=== PATIENT | male | born 1985 | race Caucasian/White ===

== ENCOUNTER 2024-10-30 11:55 | Emergency (ER) | payer SELFPAY ==
[2024-10-30 11:58] VITALS: BP 145/100; PULSE 107; TEMP 36.3; O2SAT 100; BMI 24.2
[2024-10-30 12:18] LABS: Glucometer 266 mg/dL (74-106)
--- NOTE | 2024-10-30 12:20 | XR_ITS ---
The [address] [address] Patient Name: SCOUT PEREZ MRN: [id number] date: 1985 Sex: M Assigned Patient Location: ER Current Patient Location: ER Accession/Order Number: [id number] Exam Date: 10/30/2024 12:25 Report Date: 10/30/2024 12:55 At the request of: ALISIA GHOSH Procedure: XR foot LT min 3V PROCEDURE: XR foot LT min 3V HISTORY: ulcer in the big toe COMPARISON: None. FINDINGS: BONES:No fracture, acute abnormality, or significant arthropathy. SOFT TISSUES:Skin surface defect along the plantar surface of first toe consistent with ulceration. No visible extension to the bone. EFFUSION:None visible. OTHER: Negative. XR/XR foot LT min 3V IMPRESSION: 1. Plantar surface ulceration of first toe. 2. No appreciable bone involvement to suggest osteomyelitis. Electronically authenticated by: FRANCK DUONG Date: 10/30/2024 12:55
[2024-10-30 12:36] LABS: Basophils Percent Auto 0.6 % (0.2-2.0); Eosinophils Absolute Auto 0.1 10^3/uL (0.0-0.7); Eosinophils Percent Auto 0.9 % (0.9-7.0); Hematocrit 44.2 % (42.0-54.0); Hemoglobin 15.6 g/dL (14.0-18.0); Immature Granulocytes Abs Auto 0.04 10^3/uL (0.00-0.03); Immature Granulocytes Pct Auto 0.6 % (0.0-0.5); Lymphocytes Absolute Auto 1.5 10^3/uL (1.2-3.8); Lymphocytes Percent Auto 23.2 % (20.5-60.0); Mean Corpuscular HGB Conc 35.3 g/dL (29.9-35.2); Mean Corpuscular Hemoglobin 31.5 pg (25.9-34.0); Mean Corpuscular Volume 89.1 fL (80.0-94.0); Mean Platelet Volume 8.5 fL (9.5-13.5); Monocytes Absolute Auto 0.5 10^3/uL (0.3-0.8); Monocytes Percent Auto 7.3 % (1.7-12.0); Neutrophils Absolute Auto 4.4 10^3/uL (1.4-6.5); Neutrophils Percent Auto 67.4 % (43.0-75.0); Platelet Count 188 10^3/uL (150-450); Red Blood Count 4.96 10^6/uL (4.70-6.10); Red Cell Distribution Width 15.6 % (11.0-15.0); White Blood Count 6.5 10^3/uL (4.0-11.0)
[2024-10-30 12:42] LABS: Erythrocyte Sedimentation Rate 15 mm/hr (<=15)
[2024-10-30 12:50] LABS: Alanine Aminotransferase 22 U/L (16-63); Alkaline Phosphatase 104 U/L (46-116); Anion Gap 10.6; Aspartate Amino Transferase 13 U/L (15-37); BUN Creatinine Ratio 16.9; Bilirubin Total 4.5 mg/dL (0.2-1.0); Carbon Dioxide 30.1 mmol/L (21.0-32.0); Chloride 99 mmol/L (98-107); Estimated Average Glucose 157 mg/dL; Estimated GFR (African America >60 (>=60 mL/min/1.73m^2); Estimated GFR (Non-African Ame >60 (>=60 mL/min/1.73m^2); Globulin 4.2 g/dL; Glucose 283 mg/dL (74-106); Glycohemoglobin A1C 7.1 % (4.5-6.2); Potassium 3.7 mmol/L (3.5-5.1); Sodium 136 mmol/L (136-145); Total Protein 8.2 g/dL (6.4-8.2)
[2024-10-30 12:51] LABS: C Reactive Protein <0.50 mg/dL (<=0.50)
--- NOTE | 2024-10-30 13:18 | ED.EXTPRO1 ---
HPI - Extremity Problem General Chief complaint: Extremity Problem, Nontraumatic Stated complaint: LOWER EXTREMITY Time Seen by Provider: 10/30/24 12:08 Source: patient Mode of arrival: walk-in Limitations: no limitations History of Present Illness HPI Narrative: The patient presented to us with a ulcer to his left foot he mentioned that it developed over the last 2 weeks, patient does not have any primary care doctor and he mentioned that he had no recent blood workup or any health care evaluation He is complaining to us with a pain in his left foot in addition to the ulcer The patient noted that almost 2 weeks ago with no trauma or fall but he mentioned that he does not feel his feet as a baseline No fever or chills Related Data Previous Rx's ?Medication ?Instructions ?Recorded doxycycline hyclate 100 mg tablet 100 mg PO BID 7 days #14 tabs 10/30/24 metformin 500 mg tablet 500 mg PO DAILY #20 tabs 10/30/24 Allergies Allergy/AdvReac Type Severity Reaction Status Date / Time No Known Drug Allergies Allergy Verified 10/30/24 12:04 Review of Systems ROS Status of ROS 10 or more systems reviewed and unremarkable except as noted in history and below PFSH PFSH Social History Little interest or pleasure in doing things: not at all Feeling down, depressed, or hopeless: not at all Exam Narrative Exam Narrative: Nurses notes and vital signs reviewed and patient is not hypoxic. General: Well-appearing and in no apparent distress. Skin: Warm, dry, no pallor noted. No rash. Head: Normocephalic, atraumatic. Neck: Supple, non-tender. Eye: Pupils are equal, round and EOMI. No scleral icterus. Ears, Nose, Mouth, and Throat: TM are clear, no nasal mucosal hypertrophy. Oral mucosa is moist, no posterior oropharynx erythema, uvula is mid-line Cardiovascular: Regular Rate and Rhythm without murmur, gallop or rub. Respiratory: No accessory muscle use or respiratory distress. Lungs are clear to auscultation, no wheezing, rales or rhonchi Chest Wall: no tenderness Back: No midline thoracic or lumbar vertebral tenderness. No CVA tenderness Musculoskeletal: The patient left foot examination showed that he have wet feet mostly at the sole, in addition to an ulcer that is measuring almost half a centimeter in diameter that is healing although there is redness on the dorsum of the foot just on the big toe, the ulcer is just at the distal phalanx of the greater toe on the left side and there is no tenderness on palpation GI: Abdomen is soft, non-distended. Normal bowel sounds. No masses appreciated. No tenderness to palpation. No rebound, guarding, or rigidity noted. Neurological: A&O x4. No cranial nerve dysfunction observed. No truncal ataxia. Moves all extremities. Sensation intact. Psychiatric: Cooperative and interactive. Normal mood and affect. Constitutional Vital Signs, click to edit/add: Last Vital Signs Temp 97.4 F L 10/30/24 11:58 Pulse 107 H 10/30/24 11:58 Resp 18 10/30/24 11:58 BP 145/100 H 10/30/24 11:58 Pulse Ox 100 10/30/24 11:58 O2 Del Method Room Air 10/30/24 11:58 Course Vital Signs Vital signs: Vital Signs Temperature 97.4 F L 10/30/24 11:58 Pulse Rate 107 H 10/30/24 11:58 Respiratory Rate 18 10/30/24 11:58 Blood Pressure 145/100 H 10/30/24 11:58 Pulse Oximetry 100 10/30/24 11:58 Oxygen Delivery Method Room Air 10/30/24 11:58 Temperature 97.4 F L 10/30/24 11:58 Pulse Rate 107 H 10/30/24 11:58 Respiratory Rate 18 10/30/24 11:58 Blood Pressure 145/100 H 10/30/24 11:58 Pulse Oximetry 100 10/30/24 11:58 Oxygen Delivery Method Room Air 10/30/24 11:58 MDM - Extremity (Nontraumatic) MDM Narrative Medical decision making narrative: Patient had a CBC and chemistry in the ER done after he had a elevated blood sugar and his A1c was 7.1 He is mostly is diabetic and started on metformin 5 mg daily in addition to doxycycline for possible mild cellulitis developing in the left foot The patient referred to podiatry as outpatient in addition to assigned a primary care He was instructed about the importance of follow-up with the podiatry in addition to starting to follow-up with the primary care in addition to diabetic education provided on discharge papers The patient is to follow up with primary care physician in next 2-3 days or to return to the emergency department should any of the signs or symptoms worsen or new symptoms develop. The patient agrees with the following Diagnosis and Treatment plan and the patient will be discharged home. Lab Data Labs: Lab Results 10/30/24 10/30/24 Range/Units 12:17 12:30 WBC 6.5 (4.0-11.0) 10^3/uL RBC 4.96 (4.70-6.10) 10^6/uL Hgb 15.6 (14.0-18.0) g/dL Hct 44.2 (42.0-54.0) % MCV 89.1 (80.0-94.0) fL MCH 31.5 (25.9-34.0) pg MCHC 35.3 H (29.9-35.2) g/dL RDW 15.6 H (11.0-15.0) % Plt Count 188 (150-450) 10^3/uL MPV 8.5 L (9.5-13.5) fL Neut % (Auto) 67.4 (43.0-75.0) % Lymph % (Auto) 23.2 (20.5-60.0) % [place] % (Auto) 7.3 (1.7-12.0) % Eos % (Auto) 0.9 (0.9-7.0) % Baso % (Auto) 0.6 (0.2-2.0) % Neut # (Auto) 4.4 (1.4-6.5) 10^3/uL Lymph # (Auto) 1.5 (1.2-3.8) 10^3/uL [place] # (Auto) 0.5 (0.3-0.8) 10^3/uL Eos # (Auto) 0.1 (0.0-0.7) 10^3/uL Baso # (Auto) 0.0 (0.0-0.1) 10^3/uL Abs Immat Gran (auto) 0.04 H (0.00-0.03) 10^3/uL Imm/Tot Granulo (auto) 0.6 H (0.0-0.5) % ESR 15 (<=15) mm/hr Sodium 136 (136-145) mmol/L Potassium 3.7 (3.5-5.1) mmol/L Chloride 99 (98-107) mmol/L Carbon Dioxide 30.1 (21.0-32.0) mmol/L Anion Gap 10.6 BUN 14.0 (7.0-18.0) mg/dL Creatinine 0.83 (0.70-1.30) mg/dL Est GFR ( Amer) >60 (>=60 mL/min/1.73m^2) Est GFR (Non-Af Amer) >60 (>=60 mL/min/1.73m^2) BUN/Creatinine Ratio 16.9 Glucose 283 H (74-106) mg/dL Estimat Average Glucose 157 mg/dL Hemoglobin A1c 7.1 H (4.5-6.2) % Calcium 9.0 (8.5-10.1) mg/dL Total Bilirubin 4.5 H (0.2-1.0) mg/dL AST 13 L (15-37) U/L ALT 22 (16-63) U/L Alkaline Phosphatase 104 (46-116) U/L C-Reactive Protein <0.50 (<=0.50) mg/dL Total Protein 8.2 (6.4-8.2) g/dL Albumin 4.0 (3.4-5.0) g/dL Globulin 4.2 g/dL Albumin/Globulin Ratio 1.0 POC Glucose 266 H (74-106) mg/dL Discharge Plan Discharge Chief Complaint: Extremity Problem, Nontraumatic Clinical Impression: Diabetic foot ulcer, Newly diagnosed diabetes Patient Disposition: Home, Self-Care Time of Disposition Decision: 13:07 Condition: Good Prescriptions / Home Meds: New metformin 500 mg tablet 500 mg PO DAILY Qty: 20 0RF doxycycline hyclate 100 mg tablet 100 mg PO BID 7 Days Qty: 14 0RF Print Language: Georgian Instructions: Foot Care for People with Diabetes (ED), Diabetes and Your Skin (ED), Diabetes and Nutrition (ED), Diabetes and Exercise (ED) Referrals: Physician,Non-Staff, MD [Primary Care Provider] - 1 week Mic Mccann DPM [Physician] - 1 week
== END 2024-10-30 13:19 | disposition home or self-care (01) ==
PROVIDERS: Emergency Provider Emergency Medicine
DX: E11.621 Type 2 diabetes mellitus with foot ulcer (principal); L97.529 Non-pressure chronic ulcer of other part of left foot with unspecified severity; Z79.84 Long term (current) use of oral hypoglycemic drugs
CPT/HCPCS: 36415; 73630; 80053; 83036; 85025; 85652; 86140; 99284

== ENCOUNTER 2024-12-22 19:59 | Emergency (ER) | payer SELFPAY ==
[2024-12-22 20:03] VITALS: BP 166/105; PULSE 100; O2SAT 100; BMI 25.8
[2024-12-22 20:09] VITALS: TEMP 36.4
--- NOTE | 2024-12-22 20:09 | ED.GENADUL1 ---
HPI HPI - General Adult General Chief complaint: Alcohol Stated complaint: intoxication Time Seen by Provider: 12/22/24 20:05 Source: patient and law enforcement Mode of arrival: law enforcement Limitations: no limitations History of Present Illness HPI narrative: 39-year-old male presents to the emergency department for alcohol intoxication and falling. He was brought in by paramedics and police. He was apparently walking down the street, not driving, and he fell a few times. The patient himself does not have any complaints. He seems to be well-known to the police officers who report that he drinks frequently and sometimes gets emotional when he drinks. They report that he typically does not get violent. This occurred just before coming into the emergency department. Related Data Previous Rx's ?Medication ?Instructions ?Recorded doxycycline hyclate 100 mg tablet 100 mg PO BID 7 days #14 tabs 10/30/24 metformin 500 mg tablet 500 mg PO DAILY #20 tabs 10/30/24 Allergies Allergy/AdvReac Type Severity Reaction Status Date / Time No Known Drug Allergies Allergy Verified 10/30/24 12:04 Opioid HPI Opioid Management Most Recent Opioid Data: No Data to Display Review of Systems ROS Narrative Not obtainable, alcohol intoxication PFSH PFSH Social History Little interest or pleasure in doing things: not at all Feeling down, depressed, or hopeless: not at all Exam Narrative Exam Narrative: Nurses note and vital signs reviewed and patient is not hypoxic. General: The patient appears in no acute distress Skin: Warm, dry, no pallor noted. There is no rash noted. His skin feels cool Head: Normocephalic, atraumatic Eye: Normal conjunctiva, no drainage Ears, Nose, Mouth, and Throat: oral mucosa is moist. Nares patent. Cardiovascular: Regular Rate and Rhythm, borderline tachycardia Respiratory: Patient is in no distress, no accessory muscle use, lungs are clear to auscultation, no wheezing, rales or rhonchi Back: non-tender GI: Soft and nontender Musculoskeletal: The patient has no evidence of calf tenderness, no pitting edema, symmetrical pulses noted bilaterally Neurological: A&O x4, moves all of his extremities well Psychiatric: Cooperative Constitutional Vital Signs, click to edit/add: Last Vital Signs Temp 97.6 F 12/22/24 20:09 Pulse 95 H 12/22/24 22:13 Resp 18 12/22/24 22:13 BP 136/88 12/22/24 22:13 Pulse Ox 99 12/22/24 22:13 O2 Del Method Room Air 12/22/24 20:03 Course Vital Signs Vital signs: Vital Signs Pulse Rate 100 H 12/22/24 20:03 Respiratory Rate 20 12/22/24 20:03 Blood Pressure 166/105 H 12/22/24 20:03 Pulse Oximetry 100 12/22/24 20:03 Oxygen Delivery Method Room Air 12/22/24 20:03 Temperature 97.6 F 12/22/24 20:09 Pulse Rate 95 H 12/22/24 22:13 Respiratory Rate 18 12/22/24 22:13 Blood Pressure 136/88 12/22/24 22:13 Pulse Oximetry 99 12/22/24 22:13 Oxygen Delivery Method Room Air 12/22/24 20:03 Medical Decision Making MDM Narrative Medical decision making narrative: The patient was found to have alcohol intoxication with a level of 320. There is no injury. He was somewhat uncooperative at various points in the emergency department and he was given 1 mg of IV Ativan. He slept quite well and subsequently was able to wake up and ambulate without any significant difficulty and the police are going to take him to his house. Differential Diagnosis Differential Diagnosis: Alcohol intoxication Lab Data Lab results reviewed: Yes I reviewed the patient's lab results Labs: Lab Results 12/22/24 Range/Units 20:20 WBC 6.4 (4.0-11.0) 10^3/uL RBC 4.34 L (4.70-6.10) 10^6/uL Hgb 14.8 (14.0-18.0) g/dL Hct 40.9 L (42.0-54.0) % MCV 94.2 H (80.0-94.0) fL MCH 34.1 H (25.9-34.0) pg MCHC 36.2 H (29.9-35.2) g/dL RDW 16.5 H (11.0-15.0) % Plt Count 150 (150-450) 10^3/uL MPV 10.1 (9.5-13.5) fL Neut % (Auto) 67.5 (43.0-75.0) % Lymph % (Auto) 22.0 (20.5-60.0) % [place] % (Auto) 8.2 (1.7-12.0) % Eos % (Auto) 0.3 L (0.9-7.0) % Baso % (Auto) 0.8 (0.2-2.0) % Neut # (Auto) 4.3 (1.4-6.5) 10^3/uL Lymph # (Auto) 1.4 (1.2-3.8) 10^3/uL [place] # (Auto) 0.5 (0.3-0.8) 10^3/uL Eos # (Auto) 0.0 (0.0-0.7) 10^3/uL Baso # (Auto) 0.1 (0.0-0.1) 10^3/uL Abs Immat Gran (auto) 0.08 H (0.00-0.03) 10^3/uL Imm/Tot Granulo (auto) 1.2 H (0.0-0.5) % Sodium 139 (136-145) mmol/L Potassium 4.3 (3.5-5.1) mmol/L Chloride 103 (98-107) mmol/L Carbon Dioxide 28.7 (21.0-32.0) mmol/L Anion Gap 11.6 BUN 10.0 (7.0-18.0) mg/dL Creatinine 0.72 (0.70-1.30) mg/dL Est GFR ( Amer) >60 (>=60 mL/min/1.73m^2) Est GFR (Non-Af Amer) >60 (>=60 mL/min/1.73m^2) BUN/Creatinine Ratio 13.9 Glucose 287 H (74-106) mg/dL Calcium 8.7 (8.5-10.1) mg/dL Total Bilirubin 5.0 H (0.2-1.0) mg/dL Direct Bilirubin 0.2 (0.0-0.2) mg/dL AST 65 H (15-37) U/L ALT 33 (16-63) U/L Alkaline Phosphatase 113 (46-116) U/L Total Protein 8.3 H (6.4-8.2) g/dL Albumin 3.9 (3.4-5.0) g/dL Globulin 4.4 g/dL Albumin/Globulin Ratio 0.9 Ethanol Quant 320 mg/dL Discharge Plan Discharge Chief Complaint: Alcohol Clinical Impression: Alcoholic intoxication Patient Disposition: Home, Self-Care Time of Disposition Decision: 01:26 Condition: Good Mode of Transportation: Private Vehicle Prescriptions / Home Meds: No Action metformin 500 mg tablet 500 mg PO DAILY Qty: 20 0RF doxycycline hyclate 100 mg tablet 100 mg PO BID 7 Days Qty: 14 0RF Print Language: Maori Instructions: Alcohol Intoxication (ED) Referrals: Physician,Non-Staff, MD [Primary Care Provider] - 1 week
[2024-12-22 20:27] LABS: Basophils Absolute Auto 0.1 10^3/uL (0.0-0.1); Basophils Percent Auto 0.8 % (0.2-2.0); Eosinophils Percent Auto 0.3 % (0.9-7.0); Hematocrit 40.9 % (42.0-54.0); Hemoglobin 14.8 g/dL (14.0-18.0); Immature Granulocytes Abs Auto 0.08 10^3/uL (0.00-0.03); Immature Granulocytes Pct Auto 1.2 % (0.0-0.5); Lymphocytes Absolute Auto 1.4 10^3/uL (1.2-3.8); Mean Corpuscular HGB Conc 36.2 g/dL (29.9-35.2); Mean Corpuscular Hemoglobin 34.1 pg (25.9-34.0); Mean Corpuscular Volume 94.2 fL (80.0-94.0); Mean Platelet Volume 10.1 fL (9.5-13.5); Monocytes Absolute Auto 0.5 10^3/uL (0.3-0.8); Monocytes Percent Auto 8.2 % (1.7-12.0); Neutrophils Absolute Auto 4.3 10^3/uL (1.4-6.5); Neutrophils Percent Auto 67.5 % (43.0-75.0); Platelet Count 150 10^3/uL (150-450); Red Blood Count 4.34 10^6/uL (4.70-6.10); Red Cell Distribution Width 16.5 % (11.0-15.0); White Blood Count 6.4 10^3/uL (4.0-11.0)
[2024-12-22] MEDS: 0.9 % SODIUM CHLORIDE 1,000 ML 1000 ML IV (20:30)
[2024-12-22 20:42] LABS: Anion Gap 11.6; BUN Creatinine Ratio 13.9; Calcium 8.7 mg/dL (8.5-10.1); Carbon Dioxide 28.7 mmol/L (21.0-32.0); Chloride 103 mmol/L (98-107); Estimated GFR (African America >60 (>=60 mL/min/1.73m^2); Estimated GFR (Non-African Ame >60 (>=60 mL/min/1.73m^2); Glucose 287 mg/dL (74-106); Potassium 4.3 mmol/L (3.5-5.1); Sodium 139 mmol/L (136-145)
[2024-12-22 20:44] LABS: Alanine Aminotransferase 33 U/L (16-63); Albumin Globulin Ratio 0.9; Albumin Level 3.9 g/dL (3.4-5.0); Alkaline Phosphatase 113 U/L (46-116); Aspartate Amino Transferase 65 U/L (15-37); Bilirubin Direct 0.2 mg/dL (0.0-0.2); Ethanol 320 mg/dL; Globulin 4.4 g/dL; Total Protein 8.3 g/dL (6.4-8.2)
--- NOTE | 2024-12-22 21:06 | PC.NURSE ---
Pt here being being treated for intoxication. Pt refused to have EKG performed. Physician aware. Pt has fluids being administered at this time
[2024-12-22] MEDS: LORAZEPAM 2 MG/ML VIAL 1 MG IV (22:09)
[2024-12-22 22:13] VITALS: BP 136/88; PULSE 95; O2SAT 99
--- NOTE | 2024-12-23 01:36 | PC.NURSE ---
Pt discharged from ED. Awaiting pecan picker from [place] [employer] to transport pt home.
[2024-12-23 01:42] VITALS: BP 123/85; PULSE 94; O2SAT 100
== END 2024-12-23 01:42 | disposition home or self-care (01) ==
PROVIDERS: Emergency Provider Emergency Medicine
DX: F10.129 Alcohol abuse with intoxication, unspecified (principal); Y90.8 Blood alcohol level of 240 mg/100 ml or more
CPT/HCPCS: 36415; 80048; 80076; 80320; 85025; 96374; 99284; J2060

== ENCOUNTER 2025-09-18 04:03 | Emergency (ER) | payer SELFPAY ==
[2025-09-18 04:20] VITALS: BP 152/88; PULSE 94; TEMP 36.6; O2SAT 100; BMI 24.2
--- NOTE | 2025-09-18 04:28 | ECG_ITS ---
The [facility] Test Date: 2025-09-18 Pat Name: SCOUT PEREZ Department: Room: - Gender: Male Director Of Assessment: : 1985 Requested By: [id number] Order Number: [id number] Reading MD: ENA MURCIA M.D. Measurements Intervals [place] Rate: 89 P: 54 MT: 136 QRS: 62 QRSD: 84 T: 30 QT: 354 QTc: 401 Interpretive Statements 1100 Sinus rhythm 9110 normal ECG No previous ECG available for comparison Electronically Signed On 09-18-2025 9:40:48 EST by ENA MURCIA M.D.
--- NOTE | 2025-09-18 04:37 | ED_ITS ---
HPI - Medical Clearance General Chief complaint: Medical Clearance Stated complaint: clearance Time Seen by Provider: 09/18/25 04:22 Source: patient Source comment: Police Mode of arrival: law enforcement Limitations comment: Intoxicated History of Present Illness HPI Narrative: 40-year-old male presented to the emergency department for chief complaint of intoxication. He was brought in by police. He had been drinking tonight and was found outside on the road wearing dark clothing and was on a street. He was not injured in any way. He was brought here for his safety. He does not seem to have any complaints. Related Information Previous Rx's ?Medication ?Instructions ?Recorded doxycycline hyclate 100 mg tablet 100 mg PO BID 7 days #14 tabs 10/30/24 metformin 500 mg tablet 500 mg PO DAILY #20 tabs Allergies Allergy/AdvReac Type Severity Reaction Status Date / Time No Known Drug Allergies Allergy Verified 09/18/25 04:25 Review of Systems ROS Narrative A ten point review of systems is negative except as noted above. PFSH PFSH Social History Little interest or pleasure in doing things: not at all Feeling down, depressed, or hopeless: not at all Exam Narrative Exam Narrative: Nurses note and vital signs reviewed General:The patient appears in no apparent distress. Patient is resting c omfortably on cart. Skin:Warm, dry, no pallor noted.There is no rash noted. Mild jaundice is noted. Head:Normocephalic, atraumatic Eye: Sclera are icteric. Ears, Nose, Mouth, and Throat: oral mucosa is moist. Nares patent. Cardiovascular:Regular Rate and Rhythm Respiratory:Patient is in no distress, no accessory muscle use, lungs are clear to auscultation, no wheezing, rales or rhonchi Back:non-tender GI: Soft and nontender, nondistended Musculoskeletal: The patient has no evidence of calf tenderness, no pitting edema, symmetrical pulses noted bilaterally Neurological:A&O x4, normal speech Psychiatric:Cooperative Constitutional Vital Signs, click to edit/add: Last Vital Signs Temp 97.8 F 09/18/25 04:20 Pulse 94 H 09/18/25 04:20 Resp 20 09/18/25 04:20 BP 152/88 H 09/18/25 04:20 Pulse Ox 100 09/18/25 04:20 O2 Del Method Room Air 09/18/25 04:20 Course Vital Signs Vital signs: Vital Signs Temperature 97.8 F 09/18/25 04:20 Pulse Rate 94 H 09/18/25 04:20 Respiratory Rate 20 09/18/25 04:20 Blood Pressure 152/88 H 09/18/25 04:20 Pulse Oximetry 100 09/18/25 04:20 Oxygen Delivery Method Room Air 09/18/25 04:20 Temperature 97.8 F 09/18/25 04:20 Pulse Rate 94 H 09/18/25 04:20 Respiratory Rate 20 09/18/25 04:20 Blood Pressure 152/88 H 09/18/25 04:20 Pulse Oximetry 100 09/18/25 04:20 Oxygen Delivery Method Room Air 09/18/25 04:20 MDM - Medical Clearance MDM Narrative Medical decision making narrative: The patient has an alcohol level of 280 and was given IV fluids here. He was noted to have some jaundice and total bilirubin is in line with where it has been in the past. He will need to follow-up with PCP. He is able to be discharged home. Differential Diagnosis Differential diagnosis: Likely other (Alcohol intoxication, alcohol abuse, liver disease) Lab Data Attestation: I reviewed the patient's lab results. Labs: Lab Results 09/18/25 Range/Units 04:44 WBC 5.0 (4.0-11.0) 10^3/uL RBC 3.60 L (4.70-6.10) 10^6/uL Hgb 12.5 L (14.0-18.0) g/dL Hct 33.6 L (42.0-54.0) % MCV 93.3 (80.0-94.0) fL MCH 34.7 H (25.9-34.0) pg MCHC 37.2 H (29.9-35.2) g/dL RDW 13.7 (11.0-15.0) % Plt Count 136 L (150-450) 10^3/uL MPV 9.1 L (9.5-13.5) fL Neut % (Auto) 63.7 (43.0-75.0) % Lymph % (Auto) 27.0 (20.5-60.0) % [place] % (Auto) 7.9 (1.7-12.0) % Eos % (Auto) 0.6 L (0.9-7.0) % Baso % (Auto) 0.4 (0.2-2.0) % Neut # (Auto) 3.2 (1.4-6.5) 10^3/uL Lymph # (Auto) 1.4 (1.2-3.8) 10^3/uL [place] # (Auto) 0.4 (0.3-0.8) 10^3/uL Eos # (Auto) 0.0 (0.0-0.7) 10^3/uL Baso # (Auto) 0.0 (0.0-0.1) 10^3/uL Abs Immat Gran (auto) 0.02 (0.00-0.03) 10^3/uL Imm/Tot Granulo (auto) 0.4 (0.0-0.5) % Sodium 137 (136-145) mmol/L Potassium 3.2 L (3.5-5.1) mmol/L Chloride 102 (98-107) mmol/L Carbon Dioxide 26.9 (21.0-32.0) mmol/L Anion Gap 11.3 BUN 14.0 (7.0-18.0) mg/dL Creatinine 0.65 L (0.70-1.30) mg/dL Est GFR ( Amer) >60 (>=60 mL/min/1.73m^2) Est GFR (Non-Af Amer) >60 (>=60 mL/min/1.73m^2) BUN/Creatinine Ratio 21.5 Glucose 175 H (74-106) mg/dL Calcium 7.7 L (8.5-10.1) mg/dL Total Bilirubin 4.4 H (0.2-1.0) mg/dL Direct Bilirubin 0.3 H (0.0-0.2) mg/dL AST 19 (15-37) U/L ALT 33 (16-63) U/L Alkaline Phosphatase 85 (46-116) U/L Total Protein 7.1 (6.4-8.2) g/dL Albumin 3.8 (3.4-5.0) g/dL Globulin 3.3 g/dL Albumin/Globulin Ratio 1.2 Amylase 45 (25-115) U/L Lipase 66.0 (16.0-77.0) U/L Ethanol Quant 280 mg/dL ECG Data Attestation: I personally reviewed and interpreted this ECG as follows: (EKG on my interpretation shows sinus rhythm with rate of 89 and no acute change.) Discharge Plan Discharge Chief Complaint: Medical Clearance Clinical Impression: Alcoholic intoxication Patient Disposition: Home, Self-Care Time of Disposition Decision: 05:44 Condition: Good Mode of Transportation: Private Vehicle Prescriptions / Home Meds: No Action metformin 500 mg tablet 500 mg PO DAILY Qty: 20 0RF doxycycline hyclate 100 mg tablet 100 mg PO BID 7 Days Qty: 14 0RF Print Language: Singaporean Instructions: Alcohol Intoxication (ED) Referrals: Physician,Non-Staff, MD [Primary Care Provider] - 1 week
[2025-09-18 04:42] VITALS: PULSE 89
--- OUTSIDE RECORDS SUMMARY | 2025-09-18 04:44 | XMS_ITS | CCD ---
Author Organization [facility] ion [facility] Care Team Providers Care Simulation Developer Name Role Phone Keyon Azul Attending Unavailable Results Test NameValueInterpretationReference RangeFacilityCBC w/ Auto Diffon 06-13-2025 Basophil Absolute0.0 E9/LNormal0.0-0.2FWayne HealthCare Main CampusComment on above:Performed By: #### [id number] #### [facility] [address] [place], [place] [address]Fowpbbkcl/100 WBC (Bld)0.6 %Normal0.0-2.0[facility] HospitalComment on above:Performed By: #### [id number] #### [facility] [address] [place], [place] [address]Qus Absolute0.0 E9/LNormal0.0-0.5FWayne [facility] Comment on above:Performed By: #### [id number] #### [facility] [address] [place], [place] [address]Lqvevjbfaei/100 WBC (Bld)0.5 %Normal0.0-8.0[facility] HospitalComment on above:Performed By: #### [id number] #### [facility] [address] [place], [place] [address]Ozazd Absolute1.3 E9/LNormal1.0-4.0[facility] Comment on above:Performed By: #### [id number] #### [facility] [address] [place], [place] [address]Wutdcxzfoyo/100 WBC (Bld)17.3 %Gbwumt35.0-50.0[facility] [address] HospitalComment on above:Performed By: #### [id number] #### [facility] [address] [place], [place] [address]Bjzs Absolute0.7 E9/LNormal0.2-1.0[facility] Comment on above:Performed By: #### [id number] #### [facility] [address] [place], [place] [address]Yklcxbrjg/100 WBC (Bld)9.3 %Normal4.0-14.0[facility] HospitalComment on above:Performed By: #### [id number] #### [facility] [address] [place], [place] [address]Izctta Absolute5.4 E9/LNormal2.0-7.5FW[facility] Comment on above:Performed By: #### [id number] #### [facility] [address] [place], [place] [address]Miorcr Auto72.3 %Maofnz61.0-75.0[facility] Comment on above:Performed By: #### [id number] #### [facility] [address] [place], [place] [address]Krnzwbdp mean volume (Bld) [Entitic vol]7.[address] fLNormal6.4-10[address] [facility]Comment on above:Performed By: #### [id number] #### [facility] [address] [place], [place] [address]ESU4.4 E9/LNormal4.0-11.0[facility] HospitalComment on above:Performed By: #### [id number] #### [facility] [address] [place], [place] [address]Ijffmgvbyjv distribution width (RBC) [Ratio]14.6 %High10.9-14.[address] HospitalComment on above:Result Comment: Specimen warmed for presence of possible cold agglutinin Saline Replacement Procedure performed.Performed By: #### [id number] #### [facility] [address] [place], [place] [address]Zbwwmdkgnp (Bld) [Volume fraction]36.0 %Low37.7-49.0[facility] HospitalComment on above:Result Comment: Specimen warmed for presence of possible cold agglutinin Saline Replacement Procedure performed.Performed By: #### [id number] #### [facility] [address] [place], [place] [address]Ateftcxfcx (Bld) [Mass/Vol]13.1 g/dLLow13.5-17.5FWayne HealthCare Main CampusComment on above:Result Comment: Specimen warmed for presence of possible cold agglutinin Saline Replacement Procedure performed.Performed By: #### [id number] #### [facility] [address] [place], [place] [address]RHR (RBC) [Entitic mass]34.[address]fo[address]0-34[address]0[facility] [address] HospitalComment on above:Result Comment: Specimen warmed for presence of possible cold agglutinin Saline Replacement Procedure performed.Performed By: #### [id number] #### [facility] [address] [place] [address]MNIB (RBC) [Mass/Vol]36.5 g/lZHdzv88.4-36.0[facility] [address] HospitalComment on above:Result Comment: Specimen warmed for presence of possible cold agglutinin Saline Replacement Procedure performed.Performed By: #### [id number] #### [facility] [address] [place] [address]RRE (RBC) [Entitic vol]94.[address]bm[address] HospitalComment on above:Result Comment: Specimen warmed for presence of possible cold agglutinin Saline Replacement Procedure performed.Performed By: #### [id number] #### [facility] [address] [place] [address]Dipmwzya870.0 E9/TYscnbf797.0-500.0[facility] Comment on above:Performed By: #### [id number] #### [facility] [address] [place] [address]TTQ8.8 E12/LLow4.3-5.9[facility] [address] HospitalComment on above:Result Comment: Specimen warmed for presence of possible cold agglutinin Saline Replacement Procedure performed. Peripheral smear review performed.Performed By: #### [id number] #### [facility] [address] [place], [place] [address]LP Head or Brain w/o Contraston [id number] Head or Brain w/o ContrastExam Date/Time: 06/13/2025 03:41 EDT Reason for Exam: Other (please specify) Report IMPRESSION: NO ACUTE INTRACRANIAL PROCESS. 3 MM COLLOID CYST VERSUS CALCIFICATION. EXAMINATION: CT of the brain without contrast HISTORY: Headache after trauma COMPARISON: None available TECHNIQUE: Multiple axial images were obtained of the brain from the skull base through the vertex. Multiplanar reformats were obtained. FINDINGS: Brain volume is age appropriate. Ventricular morphology is within normal limits. Valencia-white matter differentiation is preserved. In the region of the anterior superior portion of the third ventricle there is a 3 mm focus of slight increased density that is nonspecific. No acute hemorrhage or abnormal extra-axial fluid collection. Basal cisterns are patent. No mass effect or midline shift. The visualized paranasal sinuses and mastoid air cells are clear. Posterior left scalp hematoma. Calvarium is intact. All CT scans at this facility use dose modulation, iterative reconstruction, and/or weight based dosing when appropriate to reduce radiation dose to as low as reasonably achievable. Ordering Provider: Keyon Azul FINAL REPORT Dictated: 06/13/2025 10:14 am Dany Jewell DO Signed (Electronic Signature): 06/13/2025 10:14 am Signed by: Dany Jewell DO Transcribed by: MELISSA Technologist: [facility] CenterCT Sp[facility] Cervical w/o Contraston [id number] Spine Cervical w/o ContrastExam Date/Time: 06/13/2025 03:41 EDT Reason for Exam: Trauma Report IMPRESSION: NO ACUTE FRACTURE OR MALALIGNMENT. EXAM: CT SCAN OF THE CERVICAL SPINE HISTORY: Neck pain after trauma COMPARISON: None available TECHNIQUE: Routine axial CT images and multiplanar reformatted images of the cervical spine were obtained. FINDINGS: The examination is degraded by motion artifact. Given this, no definitive acute displaced fracture or malalignment. Atlantodental interval is preserved. Cervical spine vertebral body heights are maintained. Multilevel degenerative disc disease, facet arthropathy, and uncovertebral hypertrophy resulting in varying degrees of osseous neuroforaminal stenosis. No prevertebral soft tissue swelling. Lung apices are clear. All CT scans at this facility use dose modulation, iterative reconstruction, and/or weight based dosing when appropriate to reduce radiation dose to as low as reasonably achievable. Ordering Provider: Keyon Azul FINAL REPORT Dictated: 06/13/2025 10:21 am Dany Jewell DO Signed (Electronic Signature): 06/13/2025 10:21 am Signed by: Dany Jewell DO Transcribed by: MELISSA Technologist: [facility] Clinical Summaryon [id number] Clinical SummaryED Clinical Summary [place] [address] ED Clinical Summary Person Information Name: SCOUT PEREZ/[facility] Age: 40 Years : 1985 Sex: Male Language: Serbian PCP: NONE, XXXX Marital Status: Single Visit Id: Visit Reason: Alcohol intoxication; Fall; Trauma - minor; FALL /INTOX Speciality: Acuity: 3 Enc Type: Emergency Med Service: Emergency Arrival: 06/13/2025 02:51:57 Discharge: 06/13/2025 05:26:54 LOS: 000 02:35 Checkin: 06/13/2025 02:51:57 Checkout: 06/13/2025 05:26:54 Dispo Type: Home (Routine DC) EVENTS: Event Name Event Status Request Date/Time Start Date/Time Complete Date/Time Arrive Complete 06/13/2025 02:51:57 06/13/2025 02:51:57 06/13/2025 02:51:57 Document Home Meds Request 06/13/2025 02:51:57 Triage Complete 06/13/2025 02:51:57 06/13/2025 02:57:59 06/13/2025 02:57:59 EKG Complete 06/13/2025 02:54:25 06/13/2025 02:56:14 Bed Assign Complete 06/13/2025 02:54:42 06/13/2025 02:54:42 06/13/2025 02:54:42 Dr Exam Complete 06/13/2025 02:54:42 06/13/2025 02:55:08 06/13/2025 02:55:08 RN Exam Complete 06/13/2025 02:54:42 06/13/2025 03:02:04 06/13/2025 03:02:04 Registration Complete 06/13/2025 02:55:08 06/13/2025 05:19:09 06/13/2025 05:19:09 Fall Risk Request 06/13/2025 03:02:04 Pending Labs Complete 06/13/2025 03:03:11 06/13/2025 05:05:23 Lab Complete 06/13/2025 03:03:11 06/13/2025 05:05:23 CT Complete 06/13/2025 03:03:11 06/13/2025 03:12:11 06/13/2025 03:41:06 X-Ray Complete 06/13/2025 03:03:11 06/13/2025 03:12:12 06/13/2025 03:41:09 Meds Admin Complete 06/13/2025 03:03:11 06/13/2025 03:12:13 Pending Labs Complete 06/13/2025 03:08:29 06/13/2025 03:59:32 Lab Complete 06/13/2025 03:08:29 06/13/2025 03:59:32 Trauma III Request 06/13/2025 03:10:39 Meds Admin Complete 06/13/2025 03:11:44 06/13/2025 03:44:02 Pending Labs Complete 06/13/2025 03:23:30 06/13/2025 03:23:30 06/13/2025 03:48:11 Lab Complete 06/13/2025 03:23:30 06/13/2025 03:23:30 06/13/2025 03:48:11 Pending Labs Complete 06/13/2025 03:24:47 06/13/2025 03:24:47 06/13/2025 03:24:47 Wet Read Request 06/13/2025 03:41:09 Discharge Complete 06/13/2025 05:13:50 06/13/2025 05:27:02 06/13/2025 05:27:02 Reg Complete Request 06/13/2025 05:19:09 Reg Bed Request Complete 06/13/2025 05:19:09 06/13/2025 05:19:09 06/13/2025 05:19:09 Transfer Complete 06/13/2025 05:27:02 06/13/2025 05:27:02 06/13/2025 05:27:02 ADDRESS: [address] [place] [address] DOC NOTES: Addendum by Keyon Azul DO on June 13, 2025 05:14:31 EDT MEDICAL INFORMATION: Prescriptions Given: PATIENT EDUCATION INFORMATION: Instructions: Laceration Care, Adult; Sutures, Rich, or Adhesive Wound Closure Follow up: With: Address: When: [facility] [phone] In 7 days 06/20/2025 Comments: Follow-up with family doctor for staple removal in 5 to 7 days. Follow-up with them regarding her elevated blood sugar and elevated liver function tests which may be due to alcohol use. E. Wound clean with soap and water daily and apply antibiotic ointment to the area daily. DIAGNOSIS: 1:Fall; 2:Scalp laceration; 3:Alcohol intoxication; 4:Elevated bilirubin; 5:Blood glucose elevatedNormalSumma Health Barberton Campus Medical CenterED Note-Physicianon [id number] Note-PhysicianED Note-Physician Basic Information Time Seen: Keyon Azul DO 06/13/2025 02:55 Chief Complaint pt bib ems for a fall. pt states he has been drinking since 1600. pt is obvioiusly intoxicated on arrival. pt has a small lac to the back of his head and scattered abrasions to ble. pt denies LOC, ptdenies the use of blood thinners. History of Present Illness Patient is a 40-year-old male presenting for evaluation after a fall and posterior head injury. He states that he fell because he has been drinking too much and got too high today. Family members that witnessed the fall patient has no recollection of it. He is not sure how far he fell or what he hit his head on or if he lost consciousness. Drinking since 4 PM. He is unsure if his tetanus is up-to-date. He denies that he takes any blood thinners. Denies any pain elsewhere. Appears inebriated here emergency department. Review of Systems Constitutional: no fever, no chills, no sweats, no weakness HEENT: no sore throat, ear pain, sinus congestion Respiratory: no SOB, no cough, no orthopnea, no wheezing Cardiovascular: no chest pain, no palpitations, no edema Abdomen: no pain, distension, no n/v or diarrhea Extremities: no swelling Neurological: no dizziness, confusion, headache Additional ROS info: Except as noted above in the above review of systems and in the history of present illness all other systems have been reviewed and are negative or noncontributory Physical Exam Vitals & Measurements T: 36.7 ???C(Oral) HR: 120(Peripheral) RR: 20 BP: 157/90 SpO2: 100% HT: 162.56 cm WT: 76.3 kg BMI: 28.87 Constitutional: He was inebriated, no acute distress nontoxic, non ill appearing HEENT: There is a 2 cm linear laceration on the left posterior occipital region. No underlying skull fracture palpated. No raccoon eyes or septal hematoma. Heart: Regular rate and rhythm without murmurs, gallops or rubs Lungs: clear to auscultation bilaterally without wheezes, rales or rhonchi Abdomen: soft, nontender, nondistended abdomen Extremities: warm and dry bilaterally without pitting edema MSK: The remainder of trauma survey unremarkable for bony tenderness deformity Neurological: awake, alert and answer simple questions appropriately moving all extremities spontaneously Procedure Left posterior scalp was prepped with Betadine. 2 cc lidocaine without epinephrine were injected into the site. Area was irrigated with saline. 3 rich were used to approximate the laceration. Patient tolerated procedure well with no complications. Medical Decision Making Obtain CT head without contrast rule out ICH CAT scan cervical spine rule out fracture and chest x-ray rule out pneumothorax any obvious rib fracture. Tetanus was updated. Chest x-ray does not show any acute cardiopulmonary abnormality. CTA without contrast negative for any ICH does show left parietal scalp hematoma. CAT scan of cervical spine negative for any fracture. Laceration was repaired here. Labs significant for an alcohol level of 315, patient's total bilirubin was elevated at 3.8 and hisglucose was elevated at 200 mild hyponatremia. Patient can follow-up with his primary care physician for monitoring of LFTs and to monitor for anyevidence of diabetes. She will be monitored here until sober. Patient can follow-up for staple removal 5 to 7 days. Take Motrin Tylenol as needed for pain. Assessment/Plan 1. Fall (W19.XXXA: Unspecified fall, initial encounter) 2. Scalp laceration (S01.01XA: Laceration without foreign body of scalp, initial encounter) 3. Alcohol intoxication (F10.929: Alcohol use, unspecified with intoxication, unspecified) 4. Elevated bilirubin (R17: Unspecified jaundice) 5. Blood glucose elevated (R73.9: Hyperglycemia, unspecified) Orders: lidocaine, 30 mg, 3 mL, Injection, TransDermal, Once, Stop date 06/13/25 3:11:00 EDT, STAT, Start date 06/13/25 3:11:00 EDT tetanus/diphtheria/pertussis, acel (Tdap), 0.5 mL, Injection, IntraMuscular, Once, Stop date 06/13/25 3:02:00 EDT, STAT, Start date 06/13/25 3:02:00 EDT CBC w/ Auto Diff Comprehensive Metabolic Panel CT Head or Brain w/o Contrast CT Spine Cervical w/o Contrast ECG 12 Lead Adult eGFR Ethanol Level Extra Mound Tube Extra SST Tube PT & PTT XR Chest Single View Disposition Plan Discharge Prescription List Prescriptions No active prescription medications Follow-up No qualifying data available Problem List/Past Medical History Ongoing No qualifying data Historical No qualifying data Medications Inpatient tetanus/diphtheria/pertussis, acel (Tdap) 5 units-2.5 units-18.5 mcg/0.5 mL intramuscular suspensio, 0.5 mL, IntraMuscular, Once Home No active home medications Allergies No Known Allergies Social History Alcohol - High Risk, 06/13/2025 Beer, 1-2 times per week, 06/13/2025 Substance Abuse - Medium Risk, 06/13/2025 Marijuana, 06/13/2025 Tobacco - High Risk, 06/13/2025 Current vaping or e-cigar (more content not included)...[facility]HealthComment on above:Result Comment: Electronically Signed By: Keyon Azul DO\.br\Date and Time Signed: 06/13/25 05:15 EDTED Patient Summaryon [id number] Patient SummaryED Patient Summary [place] [id number] Patient Discharge Instructions Person Information Name: SCOUT PEREZ Age: 40 Years Arrival Date: 06/13/2025 02:51:57 Discharge Diagnosis: 1:Fall; 2:Scalp laceration; 3:Alcohol intoxication; 4:Elevated bilirubin; 5:Blood glucose elevated Primary Care Physician: NONE, XXXX Provider Information Primary Provider: Keyon Azul DO Advanced Box Blank Machine Operator Helper:None The exam and treatment you received in the Emergency Department were for an urgent problem and are not intended as complete care. It is important that you follow up with a doctor, nurse practitioner,or physician???s energy assistant for ongoing care. If your symptoms become worse or you do not improve asexpected and you are unable to reach your usual health care provider, you should return to the Emergency Department. We are available 24 hours a day. SCOUT PEREZ has been given the following list of patient education materials, prescriptions andfollow-up instructions: Follow-up Instructions: With: Address: When: [facility] [phone] In 7 days 06/20/2025 Comments: Follow-up with family doctor for staple removal in 5 to 7 days. Follow-up with them regarding her elevated blood sugar and elevated liver function tests which may be due to alcohol use. E. Wound clean with soap and water daily and apply antibiotic ointment to the area daily. In the event that this physician does not participate in your insurance network, please consult with your insurance company to find a nearby participating provider. Patient Education Materials: Laceration Care, Adult; Sutures, Rich, or Adhesive Wound Closure A MESSAGE TO ALL PATIENTS REGARDING OPIOIDS PRESCRIPTION OPIOIDS: WHAT YOU NEED TO KNOW Prescription opioids can be used to help relieve qljcqzug-ju-spbniv pain and are often prescribed following a surgery or injury, or for certain health conditions. These medications can be an important part of the treatment but also come with serious risks. It is important to work with your healthcare provider to make sure you are getting the safest, most effective care. WHAT ARE THE RISKS AND SIDE EFFECTS OF OPIOID USE? Prescription opioids carry serious risks of addiction and overdose, especially with prolonged use. An opioid overdose, often marked by slowed breathing, can cause sudden . The use of prescription opioids can have a number of side effects as well, even when taken as directed: ??? Tolerance???meaning you might need to take more of the medication for the same pain relief ??? Physical dependence???meaning you have symptoms of withdrawal when a medication is stopped ??? Increased sensitivity to pain ??? Constipation ??? Nausea, vomiting, and dry mouth ??? Sleepiness and dizziness ??? Confusion ??? Depression ??? Low levels of testosterone that can result in lower sex drive, energy, and strength ??? Itching and sweating RISKS ARE GREATER WITH: ??? History of drug misuse, substance use disorder, or overdose ??? Mental health conditions (such as depression or anxiety) ??? Sleep apnea ??? Older age (65 years and older) ??? Avoid alcohol while taking prescription opioids. Also, unless specifically advised by your health care provider, medications to avoid include: ??? Benzodiazepines (such as Xanax or Valium) ??? Muscle relaxants (such as Soma or Flexeril) ??? Hypnotics (such as Ambien or Lunesta) ??? Other prescription opioids KNOW YOUR OPTIONS Talk to your health care provider about ways to manage your pain that don???t involve prescription opioids. Some of these options may actually work better and have fewer risks and side effects. Options may include: ??? Pain relievers such as acetaminophen, ibuprofen, and naproxen ??? Some medication that are also used for depression or seizures ??? Physical therapy and exercise ??? Cognitive behavioral therapy, a psychological, goal-directed approach, in which patients learn how to modify physical, behavioral, and emotional triggers of pain and stress. IF YOU ARE PRESCRIBED OPIOIDS FOR PAIN: ??? Never take opioids in greater amounts or more often than prescribed. ??? Follow up with your primary health care provider. o Work together to create a plan on how to manage your pain. o Talk about ways to help manage your pain that don???t involve prescription opioids. o Talk about any and all concerns and side effects. ??? Help prevent misuse and abuse o Never sell or share prescription opioids. o Never use another person???s prescription opioids. ??? Store prescription opioids in a secure place and out of reach of others (this may include visitors, children, friends, and family). ??? Safely dispose of unused prescription opioids: Find your community drug take-back program or y (more content not included)...[facility] Chest Single Viewon [id number] Chest Single ViewExam Date/Time: 06/13/2025 03:41 EDT Reason for Exam: trauma;Other (please specify) Report IMPRESSION: NO RADIOGRAPHIC EVIDENCE OF ACUTE INTRATHORACIC PROCESS. EXAM: XR Chest Single View History: Trauma Technique: Portable AP view of the chest. Comparison: None available Findings: The cardiomediastinal silhouette is within normal limits. No pneumothorax, pleural effusion, or consolidation. No acute osseous abnormality. Ordering Provider: Keyon Azul FINAL REPORT Dictated: 06/13/2025 8:18 am Dany Jewell DO Signed (Electronic Signature): 06/13/2025 8:18 am Signed by: Dany Jewell DO Transcribed by: MELISSA Technologist: [facility] Encounters Encounter DateEncounter TypeCare ProviderFacilityStart: 06-13-2025 End: [id number] department patient visitMattjeb Azul Facility:[facility] Payers DatePayer CategoryPayerPolicy [id number] Clinical Note 06-13-2025 Note Date & [id number] NoteED Patient Education Note Dermatology Laceration Care, Adult A laceration is a cut that may go through all layers of the skin and into the tissue that is right under the skin. Some lacerations heal on their own. Others need to be closed with stitches (sutures), rich, skin adhesive strips, or skin glue. Proper care of a laceration reduces the risk for infection, helps the laceration heal better, and may prevent scarring. General tips ??? Keep the wound clean and dry. ??? Do not scratch or pick at the wound. ??? Wash your hands with soap and water for at least 20 seconds before and after touching your wound or changing your bandage (dressing). If soap and water are not available, use hand acid dipper. ??? Do not usedisinfectants or antiseptics, such as rubbing alcohol, to clean your wound unless told by your health care provider. ??? If you were given a dressing, you should change it at least once a day, or as told by your health care provider. You should also change it if it becomes wet or dirty. How to care for your laceration If sutures or rich were used: ??? Keep the wound completely dry for the first 24 hours, or as told by your health care provider. After that time, you may shower or bathe. Do not soak your wound in water until after the sutures orstaples have been removed. ??? Clean the wound once each day, or as told by your health care provider. To do this: ? Wash the wound with soap and water. ? Rinse the wound with water to remove all soap. ? Pat the wound dry with a clean towel. Do not rub the wound. ??? After cleaning the wound, apply a thin layer of antibiotic ointment, other topical ointments, or a non-adherent dressing as told by your health care provider. This will help prevent infection andkeep the dressing from sticking to the wound. ??? Have the sutures or rich removed as told by your health care provider. Do not remove suturesor rich yourself. If skin adhesive strips were used: ??? Do not get the skin adhesive strips wet. You may shower or bathe, but keep the wound dry. ??? If the wound gets wet, pat it dry with a clean towel. Do not rub the wound. ??? Skin adhesive strips fall off on their own. If adhesive strip edges start to loosen and curl up, you may trim the loose edges. Do not remove adhesive strips completely unless your health care provider tells you to do that. If skin glue was used: ??? You may shower or bathe, but try to keep the wound dry. Do not soak the wound in water. ??? After showering or bathing, pat the wound dry with a clean towel. Do not rub the wound. ??? Do not do any activities that will make you sweat a lot until the skin glue has fallen off. ??? Do not apply liquid, cream, or ointment medicine to the wound while the skin glue is in place. Doing this may loosen the film before the wound has healed. ??? If a dressing is placed over the wound, do not apply tape directly over the skin glue. Doing this may cause the glue to be pulled off before the wound has healed. ??? Do not pick at the glue. Skin glue usually remains in place for 5?10 days and then falls off the skin. Follow these instructions at home: Medicines ??? Take [id number] and prescription medicines only as told by your health care provider. ??? If you were prescribed an antibiotic medicine or ointment, take or apply it as told by your health care provider. Do not stop using it even if your condition improves. Managing pain and swelling ??? If directed, put ice on the injured area. To do this: ? Put ice in a plastic bag. ? Place a towel between your skin and the bag. ? Leave the ice on for 20 minutes, 2?3 times a day. ? Remove the ice if your skin turns bright red. This is very important. If you cannot feel pain, heat, or cold, you have a greater risk of damage to the area. ??? Raise (elevate) the injured area above the level of your heart while you are sitting or lying down for the first 24?48 hours after the laceration is repaired. General instructions ??? Avoid any activity that could cause your wound to reopen. ??? Check your wound every day for signs of infection. Watch for: ? More redness, swelling, or pain. ? Fluid or blood. ? Warmth. ? Pus or a bad smell. ??? Keep all follow-up visits. This is important. Contact a health care provider if: ??? You received a tetanus shot and you have swelling, severe pain, redness, or bleeding at the injection site. ??? Your closed wound breaks open. ??? You have any of these signs of infection: ? More redness, swelling, or pain around your wound. ? Fluid or blood coming from your wound. ? Warmth coming from your wound. ? Pus or a bad smell coming from your wound. ? A fever. ??? You notice something coming out of the wound, such as wood or glass. ??? Your pain is not controlled with medicine. ??? You notice a change in the color of your skin near your wound. ??? You need to change the dr (more content not included)...[facility] Summary Purpose Family History No Family History Records Found Advance Directives No Advanced Directives Records Found Additional Source Comments (unrecognized sect ion and content) No Status Records Found INFORMATION SOURCE (unrecogn ized section and content) DATE CREATED AUTHOR 06/17/[address] [facility] FOR RECORDS PERTAINING TO PATIENTS WHO ARE OR HAVE BEEN ENROLLED IN A CHEMICAL DEPENDENCY/SUBSTANCEABUSE PROGRAM, SOME INFORMATION MAY BE OMITTED. This clinical summary was aggregated from multiple sources. Caution should be exercised in using it in the provision of clinical care. This summary normalizes information from multiple sources, and as a consequence, information in this document may materially change the coding, format and clinical context of patient data. In addition, data may be omitted in some cases. CLINICAL DECISIONS SHOULD BE BASED ON THE PRIMARY CLINICAL RECORDS. [employer] provides no warranty or guarantee of the accuracy or completeness of information in this document.
[2025-09-18] MEDS: 0.9 % SODIUM CHLORIDE 1,000 ML 200 ML IV (04:58)
[2025-09-18 05:01] LABS: Hematocrit 33.6 % (42.0-54.0); Hemoglobin 12.5 g/dL (14.0-18.0); Immature Granulocytes Abs Auto 0.02 10^3/uL (0.00-0.03); Immature Granulocytes Pct Auto 0.4 % (0.0-0.5); Lymphocytes Absolute Auto 1.4 10^3/uL (1.2-3.8); Mean Corpuscular HGB Conc 37.2 g/dL (29.9-35.2); Mean Corpuscular Hemoglobin 34.7 pg (25.9-34.0); Mean Corpuscular Volume 93.3 fL (80.0-94.0); Platelet Count 136 10^3/uL (150-450); Red Blood Count 3.60 10^6/uL (4.70-6.10); White Blood Count 5.0 10^3/uL (4.0-11.0)
[2025-09-18 05:15] LABS: Alanine Aminotransferase 33 U/L (16-63); Albumin Globulin Ratio 1.2; Albumin Level 3.8 g/dL (3.4-5.0); Alkaline Phosphatase 85 U/L (46-116); Amylase 45 U/L (25-115); Anion Gap 11.3; Aspartate Amino Transferase 19 U/L (15-37); Blood Urea Nitrogen 14.0 mg/dL (7.0-18.0); Calcium 7.7 mg/dL (8.5-10.1); Carbon Dioxide 26.9 mmol/L (21.0-32.0); Chloride 102 mmol/L (98-107); Estimated GFR (African America >60 (>=60 mL/min/1.73m^2); Estimated GFR (Non-African Ame >60 (>=60 mL/min/1.73m^2); Globulin 3.3 g/dL; Glucose 175 mg/dL (74-106); Lipase 66.0 U/L (16.0-77.0); Potassium 3.2 mmol/L (3.5-5.1); Sodium 137 mmol/L (136-145); Total Protein 7.1 g/dL (6.4-8.2)
[2025-09-18 06:57] VITALS: BP 119/87; PULSE 89; O2SAT 100
== END 2025-09-18 07:43 | disposition home or self-care (01) ==
PROVIDERS: Emergency Provider Emergency Medicine
DX: F10.129 Alcohol abuse with intoxication, unspecified (principal); Y90.8 Blood alcohol level of 240 mg/100 ml or more
CPT/HCPCS: 36415; 80048; 80076; 80320; 81001; 82150; 83690; 85025; 93005; 99285